=== PATIENT | female | born 1975 | race African-American/Black ===

== ENCOUNTER 2017-09-17 15:33 | Inpatient (IN) | payer MEDICAID ==
--- NOTE | 2017-09-17 16:04 | ED Physician Chart ---
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 Allergies:: Allergies Allergy/AdvReac Type Severity Reaction Status Date / Time No Known Allergies Allergy Verified 04/28/17 23:50 Vitals:: Vital Signs - 8 hr 09/17/17 15:40 Temp 98.0 F HR 113 RR 16 BP 147/89 O2 Sat % 100 Historian:: Patient, EMS Review:: Nurse's Note Reviewed, EMS run form Reviewed ED Review of Systems - Review of Systems General/Constitutional: No fever, No chills, No weight loss, No weakness, No diaphoresis, No edema, No loss of appetite Skin: No skin lesions, No rash, No bruising Head: No headache, No light-headedness Eyes: No loss of vision, No pain, No diplopia ENT: No earache, No nasal drainage, No sore throat, No tinnitus Neck: No neck pain, No swelling, No thyromegaly, No stiffness, No mass noted Cardio Vascular: No chest pain, No palpitations, No PND, No orthopnea, No edema Pulmonary: No SOB, No cough, No sputum, No wheezing GI: No nausea, No vomiting, No diarrhea, No pain, No melena, No hematochezia, No constipation, No hematemesis G/U: No dysuria, No frequency, No hematuria Musculoskeletal: No bone or joint pain, No back pain, No muscle pain Endocrine: No polyuria, No polydipsia Psychiatric: No prior psych history, No depression, Anxiety, No suicidal ideation Hematopoietic: No bruising, No lymphadenopathy Allergic/Immuno: No urticaria, No angioedema Neurological: No syncope, No focal symptoms, No weakness, No paresthesia, No headache, Seizure, No dizziness, No confusion, No vertigo ED Past Medical History - Past Medical History Obtainable: Yes Past Medical History: HTN, Seizures Family History: HTN Social History: Non Smoker, No Alcohol, No Drug Use, Surgical History: None Psychiatricy History: None Medication: Reviewed Family Medical History - Family Member Mother History Unknown: Yes Ethnicity: Non- Living Status: Hx Family Cancer: No Hx Family Coronary Artery Disease: Yes Hx Family Congestive Heart Failure: No Hx Family Hypertension: No Hx Family Stroke: No Hx Family Diabetes: No Hx Family Seizures: No Hx Family Dementia: No Hx Family AIDS: No Hx Family HIV: No Hx Family COPD: No Hx Family Hepatitis: No Hx Family Psychiatric Problems: No Hx Family Tuberculosis: No Father History Unknown: Yes Ethnicity: Non- Living Status: Still Living Hx Family Cancer: No Hx Family Coronary Artery Disease: Yes Hx Family Congestive Heart Failure: No Hx Family Hypertension: Yes Hx Family Stroke: No Hx Family Diabetes: Yes Hx Family Seizures: No Hx Family COPD: No Hx Family Hepatitis: No Hx Family Psychiatric Problems: No Hx Family Tuberculosis: No ED Physical Exam - Physical Examination General/Constitutional: Awake, Well-developed, well-nourished, Alert, No distress, GCS 15, Non-toxic appearing, Ambulatory Other Head comments:: + Occipital Scalp Contusion Eyes: Lids, conjuctiva normal, PERRL, EOMI Skin: Nl inspection, No rash, No skin lesions, No ecchymosis, Well hydrated, No lymphadenopathy ENMT: External ears, nose nl, TM canals nl, Nasal exam nl, Lips, teeth, gums nl , Oropharynx nl, Tonsils nl Neck: Nontender, Full ROM w/o pain, No JVD, No nuchal rigidity, No bruit, No mass, No stridor Respiratory: Nl effort/Exclusion, Clear to Auscultation, No Wheeze/Rhonchi/Rales Cardio Vascular: RRR, No murmur, gallop, rubs, NL S1 S2 GI: No tenderness/rebounding/guarding, No organomegaly, No hernia, Normal BS's, Nondistended, No mass/bruits, No McBurney tenderness : No CVA tenderness Extremities: No tenderness or effusion, Full ROM, normal strength in all extremities, No edema, Normal digits & nails Neuro/Psych: Alert/oriented, DTR's symmetric, Normal sensory exam, Normal motor strength, Judgement/insight normal, Mood normal, Normal gait, No focal deficits Misc: Normal back, No paraspinal tenderness ED Labs/Radiology/EKG Results - Lab Results Comments:: Na+: 133; Dilantin and Tegretol Levels are sub-therapeutic - Radiology Results Comments:: NAD - EKG Interpretations EKG Time:: 16:10 Rate & Rhythm: 100; ST Comments:: non-specific st-t changes ED Septic Shock - . Is Septic Shock (SBP<90, OR Lactate>4 mmol\L) present?: No - <6hrs of presentation: Vital Signs: Vital Signs - 8 hr 09/17/17 15:40 Temp 98.0 F HR 113 RR 16 BP 147/89 O2 Sat % 100 ED Reassessment (Disposition) - Reassessment Reassessment Condition:: Improved - Diagnosis Diagnosis:: Hyponatremia; Epilepsy; Seizures; Drug Non-Compliance; Syncope; Tachycardia - Aftercare/Follow up Instructions Aftercare/Follow-Up Instructions:: Counseled pt regarding lab results/diagnosis & need follow up, Counseled pt & family regarding lab results/diagnosis & need follow up - Patient Disposition Discharge/Transfer:: Acute Care w/in this hosp Accepting Physician:: Dr. Pisano Time Called:: 1829 Time Responded:: 18:30 Admitted to:: Telemetry Spoke to:: Dr. Pisano Admitting Medical Physician:: Dr. Pisano Condition at Disposition:: Stable, Improved
[2017-09-17 16:20] LABS: % BASOPHILS 0.6 % (0.0-2.0); % EOSINOPHILS 2.3 % (0.0-5.0); % LYMPHOCYTES 38.9 % (20.0-50.0); % MONOCYTES 7.5 % (2.0-10.0); % NEUTROPHILS 50.7 % (40.0-80.0); HEMATOCRIT 41.1 % (41.0-60); HEMOGLOBIN 13.2 gm/dL (12-16); MEAN CORPUSCULAR HGB CONC 32.1 pg (28.0-36.0); MEAN PLATELET VOLUME 8.4 fl; NEUTROPHILE ABSOLUTE 4.1 Th/cmm (1.8-8.0); PLATELET COUNT 312 Th/cmm (150-400); RED BLOOD COUNT 4.73 Mil/cmm (3.80-5.10)
[2017-09-17 16:43] LABS: ALB/GLOB RATIO 1.3 (1.0-1.8); ALKALINE PHOSPHATASE 49 U/L (34-104); ANION GAP 9.9 (7.0-16.0); BILIRUBIN,TOTAL 0.4 mg/dL (0.3-1.0); BUN - UREA NITROGEN 13 mg/dL (7-25); BUN/CREATININE RATIO 14.4; CALCIUM SERUM 9.8 mg/dL (8.6-10.3); CARBON DIOXIDE 24.8 mEq/L (21.0-31.0); CHLORIDE 102 mEq/L (98-107); CHOLESTEROL 212 mg/dL (<200); CREATININE - SERUM 0.9 mg/dL (0.6-1.2); GLUCOSE 112 mg/dL (70-105); POTASSIUM SERUM 3.7 mEq/L (3.5-5.1); SGOT 10 U/L (13-39); SGPT/ALT 12 U/L (7-52); SODIUM SERUM 133 mEq/L (136-145); TRIGLYCERIDES 104 mg/dL (<150)
[2017-09-17 16:45] LABS: PROTHROMBIN TIME (TEST) 10.4 SECONDS (9.5-11.5)
[2017-09-17] MEDS ORDERED: HYDROmorphone 1 mg/mL 1mL Syr IVP STA ×2 (19:14→19:16)
[2017-09-17] MEDS ORDERED: Sodium Chloride 0.9% 1,000 ML IV SCH (19:15)
[2017-09-17] MEDS ORDERED: HYDROmorphone 1 mg/mL 1mL Syr ONE (19:18)
[2017-09-17] MEDS ORDERED: HYDROmorphone 1 mg/mL 1mL Syr IVP PRN (20:18)
[2017-09-17 21:00] LABS: URINE BILIRUBIN NEGATIVE (NEGATIVE); URINE BLOOD NEGATIVE (NEGATIVE); URINE GLUCOSE (UA) NEGATIVE (NEGATIVE); URINE KETONE NEGATIVE (NEGATIVE); URINE PH 6.5 (4.6 - 8.0); URINE PROTEIN TRACE mg/dL (NEGATIVE); URINE UROBILINOGEN 0.2 E.U./dL (0.2 - 1.0)
[2017-09-17 21:03] LABS: URINE COLOR YELLOW
[2017-09-17 21:04] LABS: URINE AMORPHOUS SEDIMENT MANY URATES (NONE SEEN); URINE BACTERIA 1+ /hpf (NONE SEEN); URINE CALCIUM OXALATE CRYSTALS FEW /hpf; URINE EPITHELIAL CELLS FEW /lpf (FEW); URINE RBC NONE SEEN /hpf (0-5)
[2017-09-17] MEDS ORDERED: NIFEdipine 30 mg ER Tab PO SCH (23:45)
[2017-09-18 03:11] VITALS: BP 158/101
--- NOTE | 2017-09-18 07:49 | Diagnostic Imaging Report ---
CHEST X-RAY: AP view INDICATION: Syncope COMPARISON: 04/29/2017 FINDINGS: There is no focal consolidation or pleural effusions The heart is normal in size. Degenerative changes of the spine are noted with mild scoliosis. IMPRESSION: No focal airspace consolidation identified.
--- NOTE | 2017-09-18 07:59 | Diagnostic Imaging Report ---
Head CT without intravenous contrast Indication: Seizure, syncope Comparison: 10/20/2016 Technique: Axial images were obtained from the vertex to the skull base without IV contrast. Coronal reconstructions were made. Total DLP: 652, CTD I 38 FINDINGS: Images of the brain obtained without contrast demonstrate no acute hemorrhage. No mass lesions identified. The ventricles and basal cisterns are patent. The ornelas-white matter differentiation is preserved. There is no mass effect or midline shift. Mildly prominent cisterna magna is noted. No skull fractures identified. No soft tissue swelling. The paranasal sinuses are clear. IMPRESSION: No acute intracranial abnormality.
[2017-09-18] MEDS ORDERED: Influenza Vaccine 0.5 mL Syr IM ONE (10:00)
--- NOTE | 2017-09-18 15:43 | History & Physical ---
ADMIT DATE: 09/18/2017 INITIAL COMPLAINTS: 1. Fainting episode. 2. Probable seizure activity. 3. Altered level of consciousness. 4. Possible contusion, scalp. 5. Tachycardia, rule out anterior infarct. 6. Probable fall when fainting. RECENT MEDICAL HISTORY: This is a 42-year-old female that has an extensive history of probable seizure activity, also that of psychiatric history with depression. This patient presented to [facility] on 09/17/2017 in the early evening approximately 6:00 p.m. The Emergency Department physician had her CAT scan, that Emergency Department physician is Dr. Brandon Kang had her CAT scan and also determined that her antiepileptic medication levels were subtherapeutic that would be Tegretol with a level of less than 2.0 definitively less subtherapeutic and Dilantin less than 3.5, definitively less than subtherapeutic. This patient apparently had been brought in by ambulance from her home post-fall, post-fainting episode, rule out corina seizure activity. The patient also presented with a contusion, bruise, abrasion on the occiput of her scalp with a mildly decreased level of consciousness. The CT scan of this patient was performed of the patient's brain and the only positive finding was prominent cisterna magnum, no bleeds, no trauma, no skull fractures. The Dilantin is already mentioned was subtherapeutic, the Tegretol was subtherapeutic. The EKG in this patient on initial presentation demonstrated sinus tachycardia at 113 heart rate, respiratory rate 16, 147/89 blood pressure, 100 O2 sat on room air, 98.0 degrees Fahrenheit body temperature, and also the EKG demonstrated left axis deviation, rule out anterior infarct. The patient was determined by Dr. Kang to be slightly dry regarding fluids and was given IV normal saline and was started on a p.o. order of Dilantin. Dr. Kang, the Emergency Department physician called myself, Dr. Pisano, the primary for this patient, and we discussed the case and Dr. Kang felt very strongly that this patient should be admitted for 24-hour observation I agreed and the nurses proceeded to take orders from me, which included on my part IV bolus of Dilantin, admit to medical surgery for observation, chest x-ray, BNP, D-dimer, Tegretol, carbamazepine p.o. b.i.d. FAMILY HISTORY: This patient has a family, and child son, all living together. SOCIAL HISTORY: Nonsmoker. Not drinker of alcohol. ALLERGIES: No known drug allergies. REVIEW OF SYSTEMS: HEENT: Positive for a scalp occiput abrasion, contusion. Chest: Not significant for today's admission. LUNGS: Not significant for today's admission. CARDIAC: Significant for today's admission and that the patient has sinus tachycardia, rule out anterior infarct and a left axis deviation. PHYSICAL EXAMINATION: GENERAL: I was called in the evening regarding this patient and I was called multiple times and finally at 4:00 a.m. I was called indicating that the patient was leaving the premises without medical advice, leaving on her own against medical advice, so I was not able to perform personally a physical exam, so I will hamilton from the examination that was done in the Emergency Department regarding this patient's presentation. HEENT: Again the mentioned occiput scalp abrasion present. Extraocular motion intact. Fundi intact bilaterally. Nasal intact. Tympanic membranes intact bilaterally. Again, the scalp abrasion on the occiput. CHEST: According to the Emergency Department examination was normal inspiratory and expiratory excursions. LUNGS: Clear to auscultation. CARDIAC: Sinus tachycardia. No gross murmurs. Again, with the EKG demonstrating rule out anterior infarct and left axis deviation. ABDOMEN: Obese belly, positive bowel sounds, nontender to palpation again according to the Emergency Department examination. EXTREMITIES: Full range of motion, although the patient would have been supine when tested. Motor strength apparently 5/5. Cerebellum apparently intact. PSYCHIATRIC: The patient has an underlying depression. She is being treated for that mood would be altered, demonstrating a baseline of depression. NEUROLOGIC: Cerebellum intact, although the patient was supine and motor would have been 5/5 in the extremities on all 4 extremities. IMPRESSIONS: 1. Syncope episode. 2. Initially presenting with altered level of consciousness. 3. Possible/probable seizure episode. 4. Probable fall. 5. Apparent scalp contusion. 6. Sinus tachycardia with left axis deviation, rule out anterior infarct. PLAN: Admit to medical surgery, minimally 24 hours for observation. Continue normal saline. Administer bolus 300 mg Dilantin IV. Start Tegretol 200 p.o. b.i.d. that would be q.12 hours. Continue regular medications by mouth, lisinopril 40 mg p.o. every day, amlodipine 5 mg p.o. every day, Xanax 2 mg p.o. q.i.d. p.r.n. anxiety, Ambien 10 mg p.o. at bedtime, hydrochlorothiazide 12.5 mg every day, loratadine 10 mg p.o. at bedtime, Fioricet without codeine 1 tablet 4 times a day p.r.n., tension headache, Dilantin to be continued at the rate of 100 p.o. t.i.d., Seroquel 300 p.o. t.i.d., Neurontin 300 p.o. t.i.d. and Dilaudid 1 mg q.4h. IV slow push p.r.n. pain, also we are to call in consultants, Dr. Alvarado for neurological examination regarding seizure activity and fall and also Dr. Lidia Flores regarding abnormal EKG with sinus tachycardia, left axis deviation, and rule out anterior infarct. This patient left against medical advice at 4:00 a.m. only hours after being admitted that would be approximately 8-9 hours after admission against medical advice she left going home. The patient will be instructed to follow up with Dr. Pisano in his office as soon as possible. JOB# [id number]
[2017-09-18] MEDS ORDERED: NIFEdipine 30 mg ER Tab PO SCH (23:04)
== END 2017-09-18 04:45 | disposition left against medical advice (07) | DRG 53 ==
LOC: ER 15:33 → MSI 18:30
PROVIDERS: ADMIT General Practice; ATTEND General Practice
DX: G40.909 Epilepsy, unspecified, not intractable, without status epilepticus (principal); E87.1 Hypo-osmolality and hyponatremia; R55 Syncope and collapse; R00.0 Tachycardia, unspecified; R40.4 Transient alteration of awareness; S00.03XA Contusion of scalp, initial encounter; Z53.21 Procedure and treatment not carried out due to patient leaving prior to being seen by health care provider; F32.9 Major depressive disorder, single episode, unspecified; W18.30XA Fall on same level, unspecified, initial encounter; Y93.89 Activity, other specified; Y92.009 Unspecified place in unspecified non-institutional (private) residence as the place of occurrence of the external cause; Y99.8 Other external cause status; Z82.49 Family history of ischemic heart disease and other diseases of the circulatory system; Z83.3 Family history of diabetes mellitus; Z91.14 Patient's other noncompliance with medication regimen
CPT/HCPCS: 36415-UA; 70450-TC; 71010-TC; 80053-TC; 80061-TC; 80156-TC; 80185-TC; 81001-TC; 82550-TC; 83880-TC; 84484-TC; 84703-TC; 85025-TC; 85610-TC; 93005; 94760; 96374; 96375; J1170; J7030; Z7610

== ENCOUNTER 2017-11-29 08:41 | Inpatient (IN) | payer MEDICAID ==
--- NOTE | 2017-11-29 09:50 | ED Physician Chart ---
ED Chief Complaint/HPI - Patient Information Date Seen:: 11/29/17 Time Seen:: 09:35 Chief Complaint:: chest pain History of Present Illness:: Patient's had constant substernal chest pain for the last 2-1/2 week. She's had substernal chest pressure for last 1 week. Patient's had chills and fever for last 3 weeks. Patient's been short of breath for last 1 week. Patient has an occasional cough. Allergies:: Allergies Allergy/AdvReac Type Severity Reaction Status Date / Time No Known Allergies Allergy Verified 11/29/17 09:27 Vitals:: Vital Signs - 8 hr 11/29/17 09:18 Temp 97.9 F HR 118 RR 16 BP 136/96 O2 Sat % 99 Historian:: Patient Review:: Nurse's Note Reviewed ED Review of Systems - Review of Systems General/Constitutional: Fever, Chills Skin: No skin lesions Head: No headache Eyes: No loss of vision ENT: No earache Neck: No neck pain Cardio Vascular: Chest pain Pulmonary: SOB GI: No nausea, No vomiting, No diarrhea G/U: No dysuria, No frequency Track Greaser: No abnormal vaginal bleed Musculoskeletal: No bone or joint pain Endocrine: No polyuria Psychiatric: Anxiety Hematopoietic: No bruising Allergic/Immuno: No urticaria Neurological: No syncope, No focal symptoms ED Past Medical History - Past Medical History Past Medical History: HTN, Seizures, Other (grand mal seizures; sleep apnea; exercise-induced asthma when younger) Family History: HTN, Other (sleep apnea) Social History: Smoker, No Alcohol, Other (patient vapes about once a month) Surgical History: None Psychiatricy History: Other (anxiety) Medication: Reviewed Family Medical History - Family Member Mother History Unknown: Yes Ethnicity: Non- Living Status: Hx Family Cancer: No Hx Family Coronary Artery Disease: Yes Hx Family Congestive Heart Failure: No Hx Family Hypertension: Yes Hx Family Stroke: No Hx Family Diabetes: No Hx Family Seizures: No Hx Family Dementia: No Hx Family AIDS: No Hx Family HIV: No Hx Family COPD: No Hx Family Hepatitis: No Hx Family Psychiatric Problems: No Hx Family Tuberculosis: No Father History Unknown: Yes Ethnicity: Non- Living Status: Still Living Hx Family Cancer: No Hx Family Coronary Artery Disease: Yes Hx Family Congestive Heart Failure: No Hx Family Hypertension: Yes Hx Family Stroke: No Hx Family Diabetes: Yes Hx Family Seizures: No Hx Family COPD: No Hx Family Hepatitis: No Hx Family Psychiatric Problems: No Hx Family Tuberculosis: No ED Physical Exam - Physical Examination General/Constitutional: Well-developed, well-nourished, Alert, No distress Head: Atraumatic Eyes: Lids, conjuctiva normal Skin: Nl inspection, No rash, No skin lesions, No ecchymosis ENMT: External ears, nose nl, TM canals nl, Lips, teeth, gums nl, Oropharynx nl , Tonsils nl Neck: No nuchal rigidity Respiratory: Nl effort/Exclusion, Clear to Auscultation Cardio Vascular: RRR, No murmur, gallop, rubs, NL S1 S2 GI: No tenderness/rebounding/guarding, No organomegaly : No CVA tenderness Extremities: No edema Neuro/Psych: No focal deficits Misc: No paraspinal tenderness ED Labs/Radiology/EKG Results - EKG Interpretations Rate & Rhythm: normal sinus rhythm with a rate of 80 [place]: normal Comments:: Normal EKG ED Assessment - Assessment General Assessment: Patient felt slightly better after the breathing treatment. Patient's chest pain is most likely secondary to reactive airway disease and not of cardiac etiology. ED Septic Shock - . Is Septic Shock (SBP<90, OR Lactate>4 mmol\L) present?: No - <6hrs of presentation: Vital Signs: Vital Signs - 8 hr 11/29/17 09:18 Temp 97.9 F HR 118 RR 16 BP 136/96 O2 Sat % 99 ED Reassessment (Disposition) - Reassessment Reassessment Condition:: Improved - Diagnosis Diagnosis:: Reactive airway disease - Aftercare/Follow up Instructions Aftercare/Follow-Up Instructions:: Refer to Discharge Instructions Medication Prescribed:: Albuterol metered-dose inhaler to use 2 puffs every 4 hours as necessary for shortness of breath and/or chest pain - Patient Disposition Discharge/Transfer:: Home Condition at Disposition:: Stable, Improved
[2017-11-29 10:03] LABS: % BASOPHILS 0.1 % (0.0-2.0); % EOSINOPHILS 1.4 % (0.0-5.0); % MONOCYTES 3.5 % (2.0-10.0); EOSINOPHILE ABSOLUTE 0.1 Th/cmm (0.1-0.4); HEMOGLOBIN 13.4 gm/dL (12-16); LYMPHOCYTE ABSOLUTE 2.9 Th/cmm (1.5-3.0); MEAN CELL VOLUME 86.7 fl (81-100); MEAN CORPUSCULAR HEMOGLOBIN 27.7 pg (27.0-31.0); MEAN PLATELET VOLUME 8.2 fl; MONOCYTE ABSOLUTE 0.3 Th/cmm (0.3-1.0); NEUTROPHILE ABSOLUTE 4.6 Th/cmm (1.8-8.0); PLATELET COUNT 297 Th/cmm (150-400); RED BLOOD COUNT 4.84 Mil/cmm (3.80-5.10); RED CELL DISTRIBUTION WIDTH 14.9 % (11.5-20.0); WHITE BLOOD COUNT 7.9 Th/cmm (4.8-10.8)
[2017-11-29] MEDS ORDERED: Albuterol/Ipratropium Neb 3 ML AERS HHN ONE ×2 (10:24→10:34)
[2017-11-29 10:27] LABS: ANION GAP 12.1 (7.0-16.0); BUN - UREA NITROGEN 17 mg/dL (7-25); CALCIUM SERUM 9.3 mg/dL (8.6-10.3); CARBON DIOXIDE 21.1 mEq/L (21.0-31.0); CHLORIDE 107 mEq/L (98-107); CREATININE - SERUM 0.9 mg/dL (0.6-1.2); GFR AFRICAN-AMERICAN > 60.0 ml/min (>90); GFR NON AFRICAN-AMERICAN > 60.0 ml/min; GLUCOSE 116 mg/dL (70-105); POTASSIUM SERUM 3.2 mEq/L (3.5-5.1); SODIUM SERUM 137 mEq/L (136-145)
--- NOTE | 2017-11-29 10:55 | Diagnostic Imaging Report ---
CHEST X-RAY: AP view INDICATION: pain COMPARISON: 09/17/2017 FINDINGS: There is no focal consolidation or pleural effusions The heart is normal in size. Degenerative changes of the spine are noted with scoliosis. IMPRESSION: No focal airspace consolidation identified.
[2017-11-29] MEDS ORDERED: Potassium Chloride 20 mEq ER Tab PO ONE (11:02)
[2017-11-29] MEDS ORDERED: HYDROmorphone 2 mg/mL 1mL Vial IVP PRN (13:05)
[2017-11-29 13:09] VITALS: BP 147/95
[2017-11-29] MEDS: NIFEdipine 30 mg ER Tab PO SCH (17:01)
[2017-11-29] MEDS ORDERED: cefTRIAXone 1 GM in Sodium Chloride 0.9% 50 ML IV SCH (18:30)
[2017-11-29] MEDS ORDERED: Sodium Chloride 0.9% 1,000 ML IV SCH (18:30)
[2017-11-29] MEDS: Albuterol/Ipratropium Neb 3 ML AERS HHN SCH (19:50)
[2017-11-29] MEDS ORDERED: Maalox 30 mL Cup PO PRN (22:14)
[2017-11-29] MEDS: HYDROmorphone 2 mg/mL 1mL Vial IVP PRN (22:59)
--- NOTE | 2017-11-29 23:02 | History & Physical ---
ADMIT DATE: 11/29/2017 CHIEF COMPLAINT: 1. Midsternal chest pain, several days duration. 2. Abnormal EKG on presentation to the Emergency Department at [facility]. 3. Gross fatigue experienced over 2 weeks. 4. Nausea. 5. Anorexia. HISTORY OF PRESENT ILLNESS: The patient presented to [facility] on November 29, late morning with midsternal chest pain experienced over the last few days, unrelenting gross fatigue and nausea, not feeling her usual self, chills ____ over the last several days. 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 Chest x-ray demonstrated no infiltrates. Secondary, Dr. Brooks, the Emergency Department Physician communicated with the PCP, Dr. Matias Pisano regarding the Emergency Department presentation of this patient and both agreed that the patient need to be observed and serial troponins need to be taken to rule out any evolving myocardial pathology. The patient was admitted with Dr. Pisano over the telephone, prescribing telemetry for the patient. IV line was established flowing at 50 mL per hour. Second EKG was ordered by Dr. Pisano. FAMILY HISTORY: The patient has longtime spouse and children at home. SOCIAL HISTORY: The patient is not known to imbibe any significant quantities of alcohol. The patient is not known to be a cigarette smoker. ALLERGIES: No known drug allergies. REVIEW OF SYSTEMS: HEENT: Within normal limits. CHEST: Significant for today's admission with the midsternal chest pain unrelenting over several days. LUNGS: Significant for today's admission and that the patient is complaining of not being able to breathe properly and sporadic cough. CARDIAC: Significant for today's admission and that the patient has a history of hypertension and recent, as already mentioned, midsternal chest pain. ABDOMEN: Not significant for today's admission. EXTREMITIES: Not significant for today's admission. NEUROLOGICAL: Not significant for today's admission. PSYCHIATRIC: Not significant for today's admission. PHYSICAL EXAMINATION: HEENT: Normal cephalous. No apparent trauma to the head. Extraocular motion intact. Pupils equally reactive to light and accommodation bilaterally. Tympanic membranes are intact bilaterally. Oropharynx intact. CHEST: Midsternal chest pain present on palpation. LUNGS: Clear to auscultation. CARDIAC: Borderline tachycardia. No gross murmurs. ABDOMEN: Obese belly. Positive bowel sounds in all 4 quadrants. Nondistended. EXTREMITIES: Full range of motion. Motor 5/5. NEUROLOGICAL: Cerebellum intact, history of seizure disorder. PSYCHIATRIC: Mood normal. Alert and oriented x4. GENITALIA: Refused. IMPRESSION: 1. Chest pain. 2. Abnormal EKGs. We will subdivide that into first with old inferior infarct and second EKG demonstrating left anterior fascicular block and positive tachycardia. Both abnormal EKGs. 3. Elevated D-dimer, rule out pulmonary embolism. Rule out DVT, lower extremities. 4. Chills and fatigue, rule out viral respiratory illness. 5. History of seizures. 6. Difficulty breathing. 7. Anxiety. 8. Hypokalemia. 9. Insomnia. 10. Hypertension and heart disease. 11. Headache, tension/migraine. 12. Depressive disorder. PLAN: 1. Admit to medical surgery with telemetry. 2. Cardiology consult with Dr. Lidia Flores. 3. O2 nasal cannula 2 liters per minute. 4. Serial troponin I q.6h. 5. BNP in 12 hours. 6. D-dimer. 7. Repeat EKG. 8. Meds called in by Dr. Pisano. Seroquel 300 mg p.o. q.8h., Dilantin 100 mg p.o. q.8h., Procardia-XL 30 mg p.o. q.24h., lisinopril 40 mg p.o. q.24h., Dilaudid 2 mg IV slow push q.8h., Neurontin 300 mg p.o. q.8h., and Xanax 2 mg IV slow push q.6h. p.r.n. anxiety. 9. Tegretol 200 mg p.o. q.12h. 10. Ambien 10 p.o. at bedtime p.r.n. insomnia. 11. Albuterol and ipratropium breathing treatments q.6h. 12. Klor-Con 40 mEq p.o. x1. 13. Rocephin 1000 mg IV piggyback q.24h. 14. Ultrasound Doppler of lower extremities, right and left. 15. V/Q scan, pulmonary perfusion testing. 16. Flu screen. 17. Low salt diet. 18. EKG followup. 19. Potassium level. JOB# [id number]
[2017-11-30] MEDS: Albuterol/Ipratropium Neb 3 ML AERS HHN SCH ×3 (00:03→13:42)
--- NOTE | 2017-11-30 07:43 | Diagnostic Imaging Report ---
Bilateral lower extremity DVT study HISTORY: Elevated d-dimer, rule out DVT COMPARISON: None Technique: Longitudinal and transverse sonographic images of the bilateral lower extremity veins were obtained with doppler analysis. FINDINGS: There is normal compressibility, augmentation and phasicity of the bilateral common femoral, superficial femoral, popliteal, and posterior tibial veins. No thrombus is visualized. IMPRESSION: No evidence of thrombus within the bilateral lower extremity veins.
--- NOTE | 2017-11-30 08:26 | Diagnostic Imaging Report ---
Radionuclide perfusion/ventilation lung scan HISTORY: Elevated d-dimer, shortness of breath 5.2 mCi technetium macroaggregated albumin was used in the perfusion portion of the exam. 32.0 mCi technetium DTPA aerosol was using the ventilation portion of the study. The exam demonstrates uniform activity throughout the lungs in both ventilation and perfusion images. No focal abnormalities. No segmental defects. Specifically, no perfusion/ventilation mismatches. IMPRESSION: 1. Negative examination. No scintigraphic evidence of pulmonary embolism.
[2017-11-30] MEDS: NIFEdipine 30 mg ER Tab PO SCH (08:39)
[2017-11-30] MEDS: HYDROmorphone 2 mg/mL 1mL Vial IVP PRN ×2 (08:55→15:29)
[2017-11-30] MEDS ORDERED: Pneumococcal Vaccine 0.5 mL Vial IM ONE (09:00)
[2017-11-30 10:29] LABS: INF A SCREEN NEG FOR INF A; INF B SCREEN NEG FOR INF B
[2017-11-30 11:36] LABS: BUN - UREA NITROGEN 19 mg/dL (7-25); CALCIUM SERUM 9.2 mg/dL (8.6-10.3); CARBON DIOXIDE 21.7 mEq/L (21.0-31.0); CHLORIDE 108 mEq/L (98-107); GFR AFRICAN-AMERICAN > 60.0 ml/min (>90); GFR NON AFRICAN-AMERICAN > 60.0 ml/min; GLUCOSE 140 mg/dL (70-105); POTASSIUM SERUM 3.7 mEq/L (3.5-5.1); SODIUM SERUM 137 mEq/L (136-145)
[2017-11-30] MEDS ORDERED: Influenza Vaccine 0.5 mL Syr IM ONE (14:40)
--- NOTE | 2017-12-01 14:51 | Consultation ---
DATE OF CONSULTATION: 11/29/[address] Matias Pisano. HISTORY OF PRESENT ILLNESS: This is a 42-year-old -[place] obese female patient who had been complaining of chest pain on the right side, second intercostal junction for over 3 months. No history of PND or orthopnea. The patient came to the Emergency Room and the patient is admitted. PAST MEDICAL HISTORY: The patient has a history of hypertension, anxiety, insomnia, and seizure disorder. FAMILY HISTORY: Unremarkable. SOCIAL HISTORY: No history of smoking, alcohol abuse. ALLERGIES: No known allergies. PHYSICAL EXAMINATION: VITAL SIGNS: Blood pressure 130/80, pulse 70, and respirations 20. HEAD: Normocephalic. No lumps or bumps. EYES: Pupils equal, reactive to light. Fundi show AV nicking, sclerae white, conjunctivae pink. NECK: Carotid 2+. Normal upstroke. JVD flat. Thyroid not palpable. Lymph nodes not palpable. CHEST: Shows increased AP diameter. No kyphosis, scoliosis. LUNGS: Bilateral bronchovesicular breath sounds. HEART: PMI fifth intercostal space with lateral to midclavicular line. S1, S2. No S3, S4, soft systolic murmur. ABDOMEN: Soft. Liver, spleen not palpable. No organomegaly. Bowel sounds active. NEUROLOGIC: Unremarkable. EXTREMITIES: Peripheral pulses 2+. No pedal edema. The patient has a costochondral junction pain on the right third intercostal space. LABORATORY DATA AND DIAGNOSTIC DATA: During the hospital stay, troponin levels were normal. EKG unremarkable. The patient's cardiac status appears to be nonnonsignificant. DIAGNOSES: Chest pain, unlikely coronary artery disease; anxiety; depression; migraine headache; hypertension; seizure disorder. The patient was clear. The patient had troponin levels EKG, and monitored the patient on telemetry bed. JOB# [id number]
--- NOTE | 2017-12-08 08:02 | Discharge Summary ---
DATE OF DISCHARGE: 11/30/2017 DISCHARGE DIAGNOSES: 1. Midsternal chest pain, resolving. 2. Costochondritis, resolving. 3. Multiple abnormal EKGs without cardiac injury. 4. Multiple troponin 1 levels, all within normal limits. 5. Gross fatigue, resolving. 6. Nausea, resolved. 7. Anorexia, resolved. 8. Hypertension, under better control. 9. Morbid obesity. 10. Left ventricular hypertrophy/left ventricular strain. 11. Cardiac tachycardia, resolved. 12. Elevated D-dimer, be under treatment. 13. Hypokalemia, resolved. 14. Recent pulmonary infection, resolving. RECENT MEDICAL HISTORY: The patient presented to [facility] late morning 11/29/2017 with midsternal chest pain experienced over the last few days, unrelenting gross fatigue and nausea, not feeling her usual self, chills also over the last several days. 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 Chest x-ray demonstrated no infiltrates. Emergency Department physician spoke to PCP, Dr. Matias Pisano regarding presentation and both agreed that the patient needed to be observed with serial troponin levels taken to rule out any evolving myocardial pathology. The patient was admitted by Dr. Pisano over the telephone prescribing med/surg telemetry for the patient, IV flowing at 50 mL per hour with a second EKG ordered. DIAGNOSTIC DATA: At presentation, blood pressure 147/95, heart rate 111 per minute on presentation. The EKG performed in the ER demonstrated a left anterior fascicular block, premature complexes, sinus tachycardia considered and abnormal EKG. The pain scale was 4/10 with a respiratory rate 20 per minute and the temperature 96.9. Other diagnostic data includes the following: EKG performed at 6:30 p.m. on 11/29/2017, sinus tachycardia, ventricular premature complex, probable left atrial enlargement, left anterior fascicular block, considered an abnormal EKG. On 11/29/2017, V/Q scan, reason because of elevated D-dimer and shortness of breath, negative exam. No evidence of pulmonary embolus. Bilateral lower extremity DVT study performed on 11/29/2017 because of the elevated D-dimer, rule out deep vein thrombosis. Findings: No evidence of thrombus within the bilateral lower extremity veins. EKG performed on 11/30/2017 at 11:00 a.m., sinus rhythm, abnormal R-wave progression, early transition, probable left ventricular hypertrophy, abnormal EKG. Another one diagnostic data was elevated D-dimer 778. Potassium was below normal at 3.2. HOSPITAL COURSE AND TREATMENT: 1. 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 HEENT was normal. Chest was clear. Positive midsternal chest pain. Heart rate was borderline tachycardia. Abdomen was obese belly, nondistended. Extremities had full range of motion. Neurologically intact. Psychiatric alert and oriented x 4, normal affect. She had an elevated D-dimer, rule out pulmonary embolism and also her EKG was same left anterior fascicular block. She was given the following medications shortly after her arrival to the room. Some of these medications she was supposed to be taking Seroquel 300 mg p.o. q. 8 hours, Dilantin 100 mg p.o. q. 8 hours, Procardia XL 30 mg p.o. q. 24 hours, lisinopril 40 mg p.o. q. 24 hours., Dilaudid 2 mg IV slow push q. 6 hours p.r.n. pain, Neurontin 300 mg p.o. q. 8 hours, Xanax 2 mg IV slow push q. 6 hours p.r.n. anxiety, Tegretol 200 mg p.o. q. 12 hours, Ambien 10 mg p.o. at bedtime p.r.n. insomnia, albuterol ipratropium breathing administered by respiratory therapy q. 6 hours, Klor-Con 40 mEq p.o. x 1, and Rocephin 1000 mg IV piggyback q. 24 hours. Ultrasound Doppler lower extremities, right and left, V/Q scan, pulmonary perfusion, flu screen. Low salt diet. Follow up with EKG and potassium level. 2. DAY #2, 11/30/2017: Negative for influenza A and B. Potassium 3.7 normal. Troponin 1 all consistently 0.01, all normal. D-dimer remains elevated. V/Q scan negative. Ultrasound of the lower extremity Dopplers negative right and left. Blood pressure much better at 102/65, temperature 97.4, heart rate 96, no longer tachycardic, respiratory rate 20 per minute on O2 nasal cannula on 2 liters per minute, 100% O2 sat. The patient was alert and oriented, very conversant, conversing well. Good breath sounds throughout. Normal sinus rhythm. Abdomen, obese belly, nondistended. Tender to palpation sternum. Extremities normal. Midsternal chest pain reduced. EKG remains abnormal R-wave progression, early transition. Troponin 1, remains normal and not pathological. Respirations improving. Anxiety under control, tachy meds pending Cardiology consult with Dr. Lidia Flores. The patient can be discharged to home late afternoon of 11/30/2017 if it is okay with Dr. Lidia Flores and he declares that the patient is able to go home. This patient will be going home with a prescription of the following meds. She will be going home with a prescription of: Seroquel 300 mg p.o. t.i.d., #90 and this was all with 5 refills; Dilantin 100 mg p.o. t.i.d., #90; Procardia XL 30 mg p.o. every day #30; lisinopril 40 mg p.o. every day #30; Neurontin 300 mg p.o. t.i.d., #90; and Tegretol 200 mg p.o. b.i.d., #60. The patient was given security script for Ambien 10 mg p.o. at bedtime for 1 month, [place] 7.5/325 mg p.o. t.i.d. for 1 month, and Xanax 2 mg p.o. q.i.d. #120 for one month. The patient is to follow up with Dr. Pisano in his clinic early next week. The patient is stable on discharge directly to home as per Dr. Lidia Flores, Cardiology and Dr. Matias Pisano, PCP. The patient was given scripts both regular meds ____ to take home with her and the patient is stable on discharge. JOB# [id number]
== END 2017-11-30 18:05 | disposition home or self-care (01) | DRG 203 ==
LOC: ER 08:41 → MSI 12:44 → OBSVTOIN 12:44 → TELE 12:47
PROVIDERS: ADMIT General Practice; ATTEND General Practice
DX: M94.0 Chondrocostal junction syndrome [Tietze] (principal); I11.9 Hypertensive heart disease without heart failure; E66.01 Morbid (severe) obesity due to excess calories; G40.409 Other generalized epilepsy and epileptic syndromes, not intractable, without status epilepticus; I25.2 Old myocardial infarction; E87.6 Hypokalemia; R63.0 Anorexia; F17.210 Nicotine dependence, cigarettes, uncomplicated; I44.4 Left anterior fascicular block; R94.31 Abnormal electrocardiogram [ECG] [EKG]; F41.9 Anxiety disorder, unspecified; J45.909 Unspecified asthma, uncomplicated; R00.0 Tachycardia, unspecified; G47.00 Insomnia, unspecified; G43.909 Migraine, unspecified, not intractable, without status migrainosus; F32.9 Major depressive disorder, single episode, unspecified; Z68.41 Body mass index [BMI] 40.0-44.9, adult; Z82.49 Family history of ischemic heart disease and other diseases of the circulatory system; Z83.3 Family history of diabetes mellitus
CPT/HCPCS: 36415-UA; 71045-TC; 80048-TC; 80185-TC; 83735-TC; 83880-TC; 84132-TC; 84484-TC; 84703-TC; 85025-TC; 85379-TC; 87804-TC; 90732; 93005; 93970-TC-50; 94640; 94760; A9540; A9567; J0696; J1170; J7030; Z7610

== ENCOUNTER 2018-03-28 17:03 | Emergency (ER) | payer MEDICAID ==
--- NOTE | 2018-03-28 17:34 | ED Physician Chart ---
ED Chief Complaint/HPI - Patient Information Date Seen:: 03/28/18 Time Seen:: 17:28 Chief Complaint:: Chest pain History of Present Illness:: 42 yo female with history of hypertension, first had chest pain 5 months ago. The chest pain and tachycardia occurred second time 4 months ago and patient was admitted under the care by Dr. Moy. Subsequent cardiac work up was negative. Patient did have elevated D-dimer without evidence of DVT. Currently, patient developed left chest pain a few hours ago. The pain was sharp, 10/10, lasting for 2 hours. The pain would be worsened by taking deep breath. Rest lessen the pain. Had numbness in the left 5th finger. Patient denied heart burn , neck pain, or low back pain. Allergies:: Allergies Allergy/AdvReac Type Severity Reaction Status Date / Time No Known Allergies Allergy Verified 11/29/17 09:27 ED Review of Systems - Review of Systems General/Constitutional: No fever, No chills Skin: No bruising Head: No headache Eyes: No pain ENT: No earache, No sore throat Neck: No neck pain Cardio Vascular: Chest pain, Palpitations, No edema Pulmonary: SOB, No cough GI: No nausea, No vomiting G/U: No dysuria Musculoskeletal: No bone or joint pain, No back pain Neurological: No focal symptoms, No seizure ED Past Medical History - Past Medical History Past Medical History: HTN, Seizures, Other (, sleep apnea) Social History: Non Smoker, No Alcohol, No Drug Use Surgical History: (x 1) Psychiatricy History: Depression Family Medical History - Family Member Mother History Unknown: Yes Ethnicity: Non- Living Status: Hx Family Cancer: No Hx Family Coronary Artery Disease: Yes Hx Family Congestive Heart Failure: No Hx Family Hypertension: Yes Hx Family Stroke: No Hx Family Diabetes: Yes Hx Family Seizures: No Hx Family Dementia: No Hx Family AIDS: No Hx Family HIV: No Hx Family COPD: No Hx Family Hepatitis: No Hx Family Psychiatric Problems: No Hx Family Tuberculosis: No Father History Unknown: Yes Ethnicity: Non- Living Status: Still Living Hx Family Cancer: No Hx Family Coronary Artery Disease: Yes Hx Family Congestive Heart Failure: No Hx Family Hypertension: Yes Hx Family Stroke: No Hx Family Diabetes: Yes Hx Family Seizures: No Hx Family COPD: No Hx Family Hepatitis: No Hx Family Psychiatric Problems: No Hx Family Tuberculosis: No ED Physical Exam - Physical Examination General/Constitutional: Awake Head: Atraumatic Eyes: PERRL Skin: No ecchymosis ENMT: Nasal exam nl Neck: No nuchal rigidity Respiratory: No Wheeze/Rhonchi/Rales Other Respiratory comments:: Left chest wall mild tenderness Cardio Vascular: RRR, No murmur, gallop, rubs, NL S1 S2 GI: No tenderness/rebounding/guarding Extremities: normal strength in all extremities Neuro/Psych: No focal deficits ED Labs/Radiology/EKG Results - Lab Results Results: Laboratory Last Values WBC 6.8 Th/cmm (4.8-10.8) 03/28/18 18:00 RBC 4.42 Mil/cmm (3.80-5.10) 03/28/18 18:00 Hgb 12.4 gm/dL (12-16) 03/28/18 18:00 Hct 38.4 % (41.0-60) L 03/28/18 18:00 MCV 86.9 fl (81-100) 03/28/18 18:00 MCH 28.0 pg (27.0-31.0) 03/28/18 18:00 MCHC Differential 32.2 pg (28.0-36.0) 03/28/18 18:00 RDW 14.6 % (11.5-20.0) 03/28/18 18:00 Plt Count 297 Th/cmm (150-400) 03/28/18 18:00 MPV 8.5 fl 03/28/18 18:00 Neutrophils % 44.0 % (40.0-80.0) 03/28/18 18:00 Lymphocytes % 47.6 % (20.0-50.0) 03/28/18 18:00 Monocytes % 5.7 % (2.0-10.0) 03/28/18 18:00 Eosinophils % 2.0 % (0.0-5.0) 03/28/18 18:00 Basophils % 0.7 % (0.0-2.0) 03/28/18 18:00 D-Dimer 127 ng/mL (100-400) 03/28/18 21:35 Sodium 135 mEq/L (136-145) L 03/28/18 21:35 Potassium 3.7 mEq/L (3.5-5.1) 03/28/18 21:35 Chloride 108 mEq/L (98-107) H 03/28/18 21:35 Carbon Dioxide 17.7 mEq/L (21.0-31.0) L 03/28/18 21:35 Anion Gap 13.0 (7.0-16.0) 03/28/18 21:35 BUN 13 mg/dL (7-25) 03/28/18 21:35 Creatinine 0.9 mg/dL (0.6-1.2) 03/28/18 21:35 Est GFR ( Amer) > 60.0 ml/min (>90) 03/28/18 21:35 Est GFR (Non-Af Amer) > 60.0 ml/min 03/28/18 21:35 BUN/Creatinine Ratio 14.4 03/28/18 21:35 Glucose 94 mg/dL (70-105) 03/28/18 21:35 Calcium 9.3 mg/dL (8.6-10.3) 03/28/18 21:35 Magnesium 2.2 mg/dL (1.9-2.7) 03/28/18 18:00 Total Bilirubin 0.2 mg/dL (0.3-1.0) L 03/28/18 18:00 AST 11 U/L (13-39) L 03/28/18 18:00 ALT 14 U/L (7-52) 03/28/18 18:00 Alkaline Phosphatase 50 U/L (34-104) 03/28/18 18:00 Troponin I < 0.01 ng/mL (0.01-0.05) L 03/28/18 21:35 B-Natriuretic Peptide < 5.0 pg/mL (5.0-100.0) L 03/28/18 18:00 Total Protein 6.8 gm/dL (6.0-8.3) 03/28/18 18:00 Albumin 3.8 gm/dL (3.7-5.3) 03/28/18 18:00 Globulin 3.0 gm/dL 03/28/18 18:00 Albumin/Globulin Ratio 1.3 (1.0-1.8) 03/28/18 18:00 Triglycerides 110 mg/dL (<150) 03/28/18 18:00 Cholesterol 238 mg/dL (<200) H 03/28/18 18:00 LDL Cholesterol Direct 175 mg/dL (75-193) 03/28/18 18:00 HDL Cholesterol 44 mg/dL (23-92) 03/28/18 18:00 TSH 1.44 uIU/ml (0.34-5.60) 03/28/18 18:00 Serum , Qual NEGATIVE (NEGATIVE) 03/28/18 18:00 Urine Source Cancelled 03/28/18 18:00 Urine Color Cancelled 03/28/18 18:00 Urine Clarity Cancelled 03/28/18 18:00 Urine pH Cancelled 03/28/18 18:00 Ur Specific [place] Cancelled 03/28/18 18:00 Urine Protein Cancelled 03/28/18 18:00 Urine Glucose (UA) Cancelled 03/28/18 18:00 Urine Clinitest Cancelled 03/28/18 18:00 Urine Ketones Cancelled 03/28/18 18:00 Urine Blood Cancelled 03/28/18 18:00 Urine Nitrate Cancelled 03/28/18 18:00 Urine Bilirubin Cancelled 03/28/18 18:00 Urine Ictotest Cancelled 03/28/18 18:00 Urine Urobilinogen Cancelled 03/28/18 18:00 Ur Leukocyte Esterase Cancelled 03/28/18 18:00 Ur Micro Indicated Cancelled 03/28/18 18:00 Urine RBC Cancelled 03/28/18 18:00 Urine WBC Cancelled 03/28/18 18:00 Ur Epithelial Cells Cancelled 03/28/18 18:00 Calcium Oxalate Crystal Cancelled 03/28/18 18:00 Uric Acid Crystals Cancelled 03/28/18 18:00 Triple Phos Crystals Cancelled 03/28/18 18:00 Other Crystals Cancelled 03/28/18 18:00 Amorphous Sediment Cancelled 03/28/18 18:00 Urine Bacteria Cancelled 03/28/18 18:00 Hyaline Casts Cancelled 03/28/18 18:00 Fine Granular Casts Cancelled 03/28/18 18:00 Coarse Granular Casts Cancelled 03/28/18 18:00 Waxy Casts Cancelled 03/28/18 18:00 RBC Casts Cancelled 03/28/18 18:00 WBC Casts Cancelled 03/28/18 18:00 Other Casts Cancelled 03/28/18 18:00 Urine Mucus Cancelled 03/28/18 18:00 Urine Other Cancelled 03/28/18 18:00 Urine Trichomonas Cancelled 03/28/18 18:00 Urine Yeast Cancelled 03/28/18 18:00 Urine Sperm Cancelled 03/28/18 18:00 Ur Oval Fat Bodies Cancelled 03/28/18 18:00 Urine Opiates Screen NEGATIVE (NEGATIVE) 03/28/18 18:00 Urine Methadone Screen NEGATIVE (NEGATIVE) 03/28/18 18:00 Ur Barbiturates Screen POSITIVE (NEGATIVE) H 03/28/18 18:00 Ur Tricyclics Screen POSITIVE (NEGATIVE) H 03/28/18 18:00 Ur Phencyclidine Scrn NEGATIVE (NEGATIVE) 03/28/18 18:00 Amphetamines Screen NEGATIVE (NEGATIVE) 03/28/18 18:00 U Methamphetamines Scrn NEGATIVE (NEGATIVE) 03/28/18 18:00 U Benzodiazepines Scrn POSITIVE (NEGATIVE) H 03/28/18 18:00 U Cocaine Metab Screen NEGATIVE (NEGATIVE) 03/28/18 18:00 U Cannabinoids Screen NEGATIVE (NEGATIVE) 03/28/18 18:00 - Radiology Results Results: CXR: no consolidation ED Assessment - Assessment General Assessment: Atypical chest pain to rule out ACS, GERD, costochondritis or anxiety Hyponatremia Assessment/Comments:: CBC, CMP, Troponin, D-dimer CXR, EKG Aspirin NS 1L IV bolus Spoke with Dr. Moy who instructed to repeat Troponin and D-dimer in 2 hours Pantoprazole 40mg IV Ativan 1mg PO ED Septic Shock - . Is Septic Shock (SBP<90, OR Lactate>4 mmol\L) present?: No ED Reassessment (Disposition) - Reassessment Reassessment:: Repeat Trop I and D-dimer were both negative. Patient reported that overall the chest pain was relieved but was still present after treatments at ER. Reassessment Condition:: Improved - Patient Disposition Discharge/Transfer:: Home ED Discharge Plan - Patient Disposition Admit/Discharge/Transfer: PT DISCHARGED HOME Condition at Disposition: Improved Instructions: Anxiety and Panic Attacks, [id number], Chest Pain Observation Additional Instructions: FOLLOW UP WITH DR. MOY ON SUNDAY AT 5:30.
[2018-03-28 18:14] LABS: % BASOPHILS 0.7 % (0.0-2.0); % LYMPHOCYTES 47.6 % (20.0-50.0); % MONOCYTES 5.7 % (2.0-10.0); EOSINOPHILE ABSOLUTE 0.1 Th/cmm (0.1-0.4); HEMATOCRIT 38.4 % (41.0-60); HEMOGLOBIN 12.4 gm/dL (12-16); LYMPHOCYTE ABSOLUTE 3.3 Th/cmm (1.5-3.0); MEAN CELL VOLUME 86.9 fl (81-100); MEAN CORPUSCULAR HGB CONC 32.2 pg (28.0-36.0); MEAN PLATELET VOLUME 8.5 fl; MONOCYTE ABSOLUTE 0.4 Th/cmm (0.3-1.0); PLATELET COUNT 297 Th/cmm (150-400); RED BLOOD COUNT 4.42 Mil/cmm (3.80-5.10); RED CELL DISTRIBUTION WIDTH 14.6 % (11.5-20.0); WHITE BLOOD COUNT 6.8 Th/cmm (4.8-10.8)
[2018-03-28 18:29] LABS: ALB/GLOB RATIO 1.3 (1.0-1.8); ALBUMIN 3.8 gm/dL (3.7-5.3); ALKALINE PHOSPHATASE 50 U/L (34-104); AMPHETAMINE URINE NEGATIVE (NEGATIVE); ANION GAP 12.9 (7.0-16.0); BARBITURATES URINE POSITIVE (NEGATIVE); BENZODIAZEPINES QUAL URINE POSITIVE (NEGATIVE); BILIRUBIN,TOTAL 0.2 mg/dL (0.3-1.0); BUN - UREA NITROGEN 13 mg/dL (7-25); CALCIUM SERUM 9.4 mg/dL (8.6-10.3); CANNABINOID THC NEGATIVE (NEGATIVE); CHLORIDE 106 mEq/L (98-107); COCAINE METABOLITE QUAL URINE NEGATIVE (NEGATIVE); CREATININE - SERUM 1.1 mg/dL (0.6-1.2); GFR AFRICAN-AMERICAN > 60.0 ml/min (>90); GFR NON AFRICAN-AMERICAN 58.2 ml/min; GLUCOSE 95 mg/dL (70-105); METHADONE URINE NEGATIVE (NEGATIVE); METHAMPHETAMINES QUAL URINE NEGATIVE (NEGATIVE); OPIATES (MORPHINE) QUAL. URINE NEGATIVE (NEGATIVE); PHENCYCLIDINE (PCP) URINE NEGATIVE (NEGATIVE); POTASSIUM SERUM 3.9 mEq/L (3.5-5.1); SGOT 11 U/L (13-39); SGPT/ALT 14 U/L (7-52); SODIUM SERUM 134 mEq/L (136-145); TOTAL PROTEIN,SERUM 6.8 gm/dL (6.0-8.3); TRICYCLICS (TCA) QUAL. URINE POSITIVE (NEGATIVE)
[2018-03-28 18:30] LABS: CHOLESTEROL 238 mg/dL (<200); HDL -HIGH DENSITY LIPOPROTEIN 44 mg/dL (23-92); TRIGLYCERIDES 110 mg/dL (<150)
[2018-03-28] MEDS ORDERED: Sodium Chloride 0.9% 1,000 ML IV ONE (18:39)
[2018-03-28 18:48] LABS: DDIMER QUANT 125 ng/mL (100-400)
[2018-03-28 22:07] LABS: BUN - UREA NITROGEN 13 mg/dL (7-25); CALCIUM SERUM 9.3 mg/dL (8.6-10.3); CARBON DIOXIDE 17.7 mEq/L (21.0-31.0); CHLORIDE 108 mEq/L (98-107); CREATININE - SERUM 0.9 mg/dL (0.6-1.2); GFR AFRICAN-AMERICAN > 60.0 ml/min (>90); GFR NON AFRICAN-AMERICAN > 60.0 ml/min; GLUCOSE 94 mg/dL (70-105); POTASSIUM SERUM 3.7 mEq/L (3.5-5.1); SODIUM SERUM 135 mEq/L (136-145)
--- NOTE | 2018-03-29 08:12 | Diagnostic Imaging Report ---
Portable chest x-ray Time: Shortness of breath History: 1837 hours Allowing for portable technique the heart size is normal. No focal pulmonary parenchymal processes. No hilar or mediastinal abnormalities. IMPRESSION: No acute disease.
== END 2018-03-28 23:20 | disposition home or self-care (01) ==
LOC: ER 17:03
DX: R07.89 Other chest pain (principal); R00.0 Tachycardia, unspecified; R20.0 Anesthesia of skin; I10 Essential (primary) hypertension
CPT/HCPCS: 99285; 96374; 93005; 71045; 84484 ×2; 83880; 36415; 85379 ×2; 80307; 84443; 85025; 84703; 83735; 80053; 80061; C9113; 80048-TC; 81001-TC; J7030

== ENCOUNTER 2018-12-30 00:14 | Emergency (ER) | payer MEDICARE, MEDICAID ==
[2018-12-30] MEDS ORDERED: Sodium Chloride 0.9% 1,000 ML IV ONE (00:41)
--- NOTE | 2018-12-30 00:48 | ED Physician Chart ---
ED Chief Complaint/HPI - Patient Information Date Seen:: 12/30/18 Time Seen:: 00:43 Chief Complaint:: muscle cramps after seizure History of Present Illness:: 43 yr old female with hx of seizures with c/o of muscle aches cramps Allergies:: Allergies Allergy/AdvReac Type Severity Reaction Status Date / Time No Known Allergies Allergy Verified 11/29/17 09:27 ED Review of Systems - Review of Systems General/Constitutional: No fever, No chills, No weight loss, No weakness, No diaphoresis, No edema, No loss of appetite Skin: No skin lesions, No rash, No bruising Head: No headache, No light-headedness Eyes: No loss of vision, No pain, No diplopia ENT: No earache, No nasal drainage, No sore throat, No tinnitus Neck: No neck pain, No swelling, No thyromegaly, No stiffness, No mass noted Cardio Vascular: No chest pain, No palpitations, No PND, No orthopnea, No edema Pulmonary: No SOB, No cough, No sputum, No wheezing GI: No nausea, No vomiting, No diarrhea, No pain, No melena, No hematochezia, No constipation, No hematemesis G/U: No dysuria, No frequency, No hematuria Musculoskeletal: No bone or joint pain, No back pain, No muscle pain Endocrine: No polyuria, No polydipsia Psychiatric: No prior psych history, No depression, No anxiety, No suicidal ideation Hematopoietic: No bruising, No lymphadenopathy Allergic/Immuno: No urticaria, No angioedema Neurological: No syncope, No focal symptoms, No weakness, No paresthesia, No headache, No seizure, No dizziness, No confusion, No vertigo ED Past Medical History - Past Medical History Past Medical History: Seizures Family Medical History - Family Member Mother History Unknown: Yes Ethnicity: Non- Living Status: Hx Family Cancer: No Hx Family Coronary Artery Disease: Yes Hx Family Congestive Heart Failure: No Hx Family Hypertension: Yes Hx Family Stroke: No Hx Family Diabetes: Yes Hx Family Seizures: No Hx Family Dementia: No Hx Family AIDS: No Hx Family HIV: No Hx Family COPD: No Hx Family Hepatitis: No Hx Family Psychiatric Problems: No Hx Family Tuberculosis: No Father History Unknown: Yes Ethnicity: Non- Living Status: Still Living Hx Family Cancer: No Hx Family Coronary Artery Disease: Yes Hx Family Congestive Heart Failure: No Hx Family Hypertension: Yes Hx Family Stroke: No Hx Family Diabetes: Yes Hx Family Seizures: No Hx Family COPD: No Hx Family Hepatitis: No Hx Family Psychiatric Problems: No Hx Family Tuberculosis: No ED Physical Exam - Physical Examination General/Constitutional: Awake, Well-developed, well-nourished, Alert, No distress, GCS 15, Non-toxic appearing, Ambulatory Head: Atraumatic Eyes: Lids, conjuctiva normal, PERRL, EOMI Skin: Nl inspection, No rash, No skin lesions, No ecchymosis, Well hydrated, No lymphadenopathy ENMT: External ears, nose nl, Nasal exam nl, Lips, teeth, gums nl Neck: Nontender, Full ROM w/o pain, No JVD, No nuchal rigidity, No bruit, No mass, No stridor Respiratory: Nl effort/Exclusion, Clear to Auscultation, No Wheeze/Rhonchi/Rales Cardio Vascular: RRR, No murmur, gallop, rubs, NL S1 S2 GI: No tenderness/rebounding/guarding, No organomegaly, No hernia, Normal BS's, Nondistended, No mass/bruits, No McBurney tenderness : No CVA tenderness Extremities: No tenderness or effusion, Full ROM, normal strength in all extremities, No edema, Normal digits & nails Neuro/Psych: Alert/oriented, DTR's symmetric, Normal sensory exam, Normal motor strength, Judgement/insight normal, Mood normal, Normal gait, No focal deficits Misc: Normal back, No paraspinal tenderness ED Assessment - Assessment General Assessment: muscle cramps hx of seizures ED Septic Shock - . Is Septic Shock (SBP<90, OR Lactate>4 mmol\L) present?: No ED Reassessment (Disposition) - Reassessment Reassessment:: muscle cramps - Aftercare/Follow up Instructions Aftercare/Follow-Up Instructions:: Counseled pt regarding lab results/diagnosis & need follow up - Patient Disposition Discharge/Transfer:: Home Condition at Disposition:: Stable
[2018-12-30] MEDS ORDERED: Morphine Sulfate 2 mg/mL 1mL Syr IVP STA (02:35)
[2018-12-30 02:39] LABS: % BASOPHILS 0.6 % (0.0-2.0); % LYMPHOCYTES 33.9 % (20.0-50.0); % MONOCYTES 4.9 % (2.0-10.0); % NEUTROPHILS 58.6 % (40.0-80.0); BASOPHILE ABSOLUTE 0.1 Th/cumm (0-0.2); EOSINOPHILE ABSOLUTE 0.2 Th/cmm (0.1-0.4); HEMATOCRIT 33.2 % (41.0-60); HEMOGLOBIN 10.8 gm/dL (12-16); MEAN CELL VOLUME 87.7 fl (81-100); MEAN CORPUSCULAR HEMOGLOBIN 28.4 pg (27.0-31.0); MEAN CORPUSCULAR HGB CONC 32.4 pg (28.0-36.0); MEAN PLATELET VOLUME 7.9 fl; MONOCYTE ABSOLUTE 0.4 Th/cmm (0.3-1.0); NEUTROPHILE ABSOLUTE 5.2 Th/cmm (1.8-8.0); PLATELET COUNT 287 Th/cmm (150-400); RED BLOOD COUNT 3.79 Mil/cmm (3.80-5.10); WHITE BLOOD COUNT 8.9 Th/cmm (4.8-10.8)
[2018-12-30] MEDS ORDERED: Morphine Sulfate 2 mg/mL 1mL Syr ONE (02:43)
[2018-12-30 02:53] LABS: ALB/GLOB RATIO 1.7 (1.0-1.8); ALBUMIN 3.8 gm/dL (3.7-5.3); ALKALINE PHOSPHATASE 36 U/L (34-104); BILIRUBIN,TOTAL 0.2 mg/dL (0.3-1.0); BUN - UREA NITROGEN 23 mg/dL (7-25); CALCIUM SERUM 8.8 mg/dL (8.6-10.3); CARBON DIOXIDE 21.7 mEq/L (21.0-31.0); CHLORIDE 106 mEq/L (98-107); GFR AFRICAN-AMERICAN > 60.0 ml/min (>90); GFR NON AFRICAN-AMERICAN > 60.0 ml/min; GLUCOSE 116 mg/dL (70-105); PHENYTOIN < 2.5 ug/ml (10.0-20.0); POTASSIUM SERUM 3.7 mEq/L (3.5-5.1); SGOT 16 U/L (13-39); SGPT/ALT 14 U/L (7-52); SODIUM SERUM 135 mEq/L (136-145); TOTAL PROTEIN,SERUM 6.1 gm/dL (6.0-8.3)
== END 2018-12-30 03:40 | disposition home or self-care (01) ==
LOC: ER 00:14
DX: M79.10 Myalgia, unspecified site (principal); R56.9 Unspecified convulsions
CPT/HCPCS: 36415-UA; 80053-TC; 80185-TC; 85025-TC; 96374; 96375; J1885; J2270; J2405; J7030; Z7502

== ENCOUNTER 2019-01-30 17:10 | Inpatient (IN) | payer MEDICARE, MEDICAID ==
--- NOTE | 2019-01-30 17:59 | ED Physician Chart ---
ED Chief Complaint/HPI - Patient Information Date Seen:: 01/30/19 Time Seen:: 17:50 Chief Complaint:: fatigue and weakness History of Present Illness:: Patient's had fatigue, weakness, anorexia and dry mouth for 2 months. He states she's been laying in bed for the last [address] Pisano has recently diagnosed Ebstein Diaz virus infection. Allergies:: Allergies Allergy/AdvReac Type Severity Reaction Status Date / Time No Known Allergies Allergy Verified 11/29/17 09:27 Vitals:: Vital Signs - 8 hr 01/30/19 17:28 Temp 97.3 F HR 109 RR 18 BP 109/83 O2 Sat % 100 Historian:: Patient Review:: Nurse's Note Reviewed ED Review of Systems - Review of Systems General/Constitutional: Weakness, Loss of appetite Skin: No skin lesions Head: No headache Eyes: No loss of vision ENT: Other (dry mouth) Neck: No neck pain Cardio Vascular: No chest pain, No palpitations Pulmonary: No SOB GI: No nausea, No vomiting, No diarrhea Musculoskeletal: No bone or joint pain Endocrine: No polyuria Psychiatric: No prior psych history Hematopoietic: No bruising Allergic/Immuno: No urticaria Neurological: No syncope, No focal symptoms ED Past Medical History - Past Medical History Past Medical History: HTN, Seizures, Other (sleep apnea) Family History: Heart disease Social History: Non Smoker, No Alcohol Surgical History: Psychiatricy History: None Medication: Reviewed Family Medical History - Family Member Mother History Unknown: Yes Ethnicity: Non- Living Status: Hx Family Cancer: No Hx Family Coronary Artery Disease: Yes Hx Family Congestive Heart Failure: No Hx Family Hypertension: Yes Hx Family Stroke: No Hx Family Diabetes: Yes Hx Family Seizures: No Hx Family Dementia: No Hx Family AIDS: No Hx Family HIV: No Hx Family COPD: No Hx Family Hepatitis: No Hx Family Psychiatric Problems: No Hx Family Tuberculosis: No Father History Unknown: Yes Ethnicity: Non- Living Status: Still Living Hx Family Cancer: No Hx Family Coronary Artery Disease: Yes Hx Family Congestive Heart Failure: No Hx Family Hypertension: Yes Hx Family Stroke: No Hx Family Diabetes: Yes Hx Family Seizures: No Hx Family COPD: No Hx Family Hepatitis: No Hx Family Psychiatric Problems: No Hx Family Tuberculosis: No ED Physical Exam - Physical Examination General/Constitutional: Well-developed, well-nourished, Alert, No distress Other Gen/Cons comments:: Patient tearful Head: Atraumatic Eyes: Lids, conjuctiva normal, PERRL Skin: Nl inspection, No rash, No skin lesions, No ecchymosis ENMT: External ears, nose nl, TM canals nl, Nasal exam nl, Lips, teeth, gums nl Neck: No nuchal rigidity Respiratory: Nl effort/Exclusion, Clear to Auscultation Cardio Vascular: RRR, No murmur, gallop, rubs, NL S1 S2 GI: No tenderness/rebounding/guarding, No organomegaly, No hernia, Normal BS's, Nondistended, No mass/bruits Extremities: Normal digits & nails Neuro/Psych: No focal deficits ED Labs/Radiology/EKG Results - Lab Results Results: Laboratory Results WBC 9.2 Th/cmm (4.8-10.8) 01/30/19 18:10 RBC 4.33 Mil/cmm (3.80-5.10) 01/30/19 18:10 Hgb 12.6 gm/dL (12-16) 01/30/19 18:10 Hct 38.3 % (41.0-60) L 01/30/19 18:10 MCV 88.5 fl (81-100) 01/30/19 18:10 MCH 29.0 pg (27.0-31.0) 01/30/19 18:10 MCHC Differential 32.8 pg (28.0-36.0) 01/30/19 18:10 RDW 15.0 % (11.5-20.0) 01/30/19 18:10 Plt Count 300 Th/cmm (150-400) 01/30/19 18:10 MPV 7.6 fl 01/30/19 18:10 Neutrophils % 68.2 % (40.0-80.0) 01/30/19 18:10 Lymphocytes % 25.0 % (20.0-50.0) 01/30/19 18:10 Monocytes % 5.1 % (2.0-10.0) 01/30/19 18:10 Eosinophils % 1.7 % (0.0-5.0) 01/30/19 18:10 Basophils % 0.0 % (0.0-2.0) 01/30/19 18:10 Laboratory Results WBC 9.2 Th/cmm (4.8-10.8) 01/30/19 18:10 RBC 4.33 Mil/cmm (3.80-5.10) 01/30/19 18:10 Hgb 12.6 gm/dL (12-16) 01/30/19 18:10 Hct 38.3 % (41.0-60) L 01/30/19 18:10 MCV 88.5 fl (81-100) 01/30/19 18:10 MCH 29.0 pg (27.0-31.0) 01/30/19 18:10 MCHC Differential 32.8 pg (28.0-36.0) 01/30/19 18:10 RDW 15.0 % (11.5-20.0) 01/30/19 18:10 Plt Count 300 Th/cmm (150-400) 01/30/19 18:10 MPV 7.6 fl 01/30/19 18:10 Neutrophils % 68.2 % (40.0-80.0) 01/30/19 18:10 Lymphocytes % 25.0 % (20.0-50.0) 01/30/19 18:10 Monocytes % 5.1 % (2.0-10.0) 01/30/19 18:10 Eosinophils % 1.7 % (0.0-5.0) 01/30/19 18:10 Basophils % 0.0 % (0.0-2.0) 01/30/19 18:10 ESR 32 mm/hr (0-30) H 01/30/19 18:10 Sodium 135 mEq/L (136-145) L 01/30/19 18:10 Potassium 3.3 mEq/L (3.5-5.1) L 01/30/19 18:10 Chloride 103 mEq/L (98-107) 01/30/19 18:10 Carbon Dioxide 21.7 mEq/L (21.0-31.0) 01/30/19 18:10 Anion Gap 13.6 (7.0-16.0) 01/30/19 18:10 BUN 15 mg/dL (7-25) 01/30/19 18:10 Creatinine 1.1 mg/dL (0.6-1.2) 01/30/19 18:10 Est GFR ( Amer) > 60.0 ml/min (>90) 01/30/19 18:10 Est GFR (Non-Af Amer) 57.9 ml/min 01/30/19 18:10 BUN/Creatinine Ratio 13.6 01/30/19 18:10 Glucose 125 mg/dL (70-105) H 01/30/19 18:10 Calcium 9.3 mg/dL (8.6-10.3) 01/30/19 18:10 Magnesium 2.2 mg/dL (1.9-2.7) 01/30/19 18:10 Total Bilirubin 0.3 mg/dL (0.3-1.0) 01/30/19 18:10 AST 12 U/L (13-39) L 01/30/19 18:10 ALT 13 U/L (7-52) 01/30/19 18:10 Alkaline Phosphatase 45 U/L (34-104) 01/30/19 18:10 Total Protein 7.2 gm/dL (6.0-8.3) 01/30/19 18:10 Albumin 4.3 gm/dL (3.7-5.3) 01/30/19 18:10 Globulin 2.9 gm/dL 01/30/19 18:10 Albumin/Globulin Ratio 1.5 (1.0-1.8) 01/30/19 18:10 - Radiology Results Results: Chest x-ray showed elevation of left hemidiaphragm was otherwise normal - EKG Interpretations Rate & Rhythm: normal sinus rhythm with a rate of 94 [place]: left axis deviation ED Assessment - Assessment General Assessment: Spoke to Dr. Pisano twice and patient be admitted ED Septic Shock - . Is Septic Shock (SBP<90, OR Lactate>4 mmol\L) present?: No - <6hrs of presentation: Vital Signs: Vital Signs - 8 hr 01/30/19 17:28 Temp 97.3 F HR 109 RR 18 BP 109/83 O2 Sat % 100 ED Reassessment (Disposition) - Reassessment Reassessment Condition:: Unchanged - Diagnosis Diagnosis:: Hypokalemia; depression - Patient Disposition Admitted to:: Med/Surg (salma) Spoke to:: Matias Pisano Admitting Medical Physician:: Matias Pisano Condition at Disposition:: Stable, Unchanged
[2019-01-30 18:14] LABS: % EOSINOPHILS 1.7 % (0.0-5.0); % MONOCYTES 5.1 % (2.0-10.0); % NEUTROPHILS 68.2 % (40.0-80.0); EOSINOPHILE ABSOLUTE 0.2 Th/cmm (0.1-0.4); HEMATOCRIT 38.3 % (41.0-60); HEMOGLOBIN 12.6 gm/dL (12-16); LYMPHOCYTE ABSOLUTE 2.3 Th/cmm (1.5-3.0); MEAN CELL VOLUME 88.5 fl (81-100); MEAN CORPUSCULAR HGB CONC 32.8 pg (28.0-36.0); MEAN PLATELET VOLUME 7.6 fl; MONOCYTE ABSOLUTE 0.5 Th/cmm (0.3-1.0); NEUTROPHILE ABSOLUTE 6.2 Th/cmm (1.8-8.0); PLATELET COUNT 300 Th/cmm (150-400); RED BLOOD COUNT 4.33 Mil/cmm (3.80-5.10); WHITE BLOOD COUNT 9.2 Th/cmm (4.8-10.8)
[2019-01-30 18:47] LABS: ALB/GLOB RATIO 1.5 (1.0-1.8); ALBUMIN 4.3 gm/dL (3.7-5.3); ALKALINE PHOSPHATASE 45 U/L (34-104); ANION GAP 13.6 (7.0-16.0); BILIRUBIN,TOTAL 0.3 mg/dL (0.3-1.0); BUN - UREA NITROGEN 15 mg/dL (7-25); CALCIUM SERUM 9.3 mg/dL (8.6-10.3); CARBON DIOXIDE 21.7 mEq/L (21.0-31.0); CHLORIDE 103 mEq/L (98-107); CREATININE - SERUM 1.1 mg/dL (0.6-1.2); GFR AFRICAN-AMERICAN > 60.0 ml/min (>90); GFR NON AFRICAN-AMERICAN 57.9 ml/min; GLUCOSE 125 mg/dL (70-105); POTASSIUM SERUM 3.3 mEq/L (3.5-5.1); SGOT 12 U/L (13-39); SGPT/ALT 13 U/L (7-52); SODIUM SERUM 135 mEq/L (136-145); TOTAL PROTEIN,SERUM 7.2 gm/dL (6.0-8.3)
[2019-01-30] MEDS ORDERED: Potassium Chloride 20 mEq ER Tab PO ONE ×2 (19:01→19:09)
[2019-01-30] MEDS ORDERED: Sodium Chloride 0.9% 1,000 ML IV ONE (19:21)
[2019-01-30 19:23] LABS: ESR SEDIMENTATION SED RATE 32 mm/hr (0-30)
[2019-01-30 21:54] LABS: URINE SOURCE RANDOM
[2019-01-30 21:57] LABS: URINE BILIRUBIN NEGATIVE (NEGATIVE); URINE BLOOD LARGE (NEGATIVE); URINE GLUCOSE (UA) NEGATIVE (NEGATIVE); URINE KETONE NEGATIVE (NEGATIVE); URINE LEUKOCYTE ESTERASE NEGATIVE (NEGATIVE); URINE MICROSCOPIC INDICATED? YES; URINE NITRATE NEGATIVE (NEGATIVE); URINE PROTEIN NEGATIVE (NEGATIVE); URINE UROBILINOGEN 0.2 E.U./dL (0.2 - 1.0)
[2019-01-30 22:05] LABS: URINE CLARITY CLEAR (CLEAR); URINE COLOR YELLOW
[2019-01-30 22:44] LABS: URINE BACTERIA FEW /hpf (NONE SEEN); URINE EPITHELIAL CELLS FEW /lpf (FEW); URINE RBC 50-100 /hpf (0-5)
[2019-01-31] MEDS ORDERED: Hydrocodone/APAP 10 mg/325 mg Tab PO PRN ×2 (00:01→11:50)
[2019-01-31] MEDS ORDERED: Sodium Chloride 0.9% 1,000 ML IV SCH (01:00)
[2019-01-31 01:07] VITALS: BP 129/100
[2019-01-31 06:41] LABS: % BASOPHILS 0.3 % (0.0-2.0); % EOSINOPHILS 3.2 % (0.0-5.0); % LYMPHOCYTES 35.3 % (20.0-50.0); % MONOCYTES 8.2 % (2.0-10.0); EOSINOPHILE ABSOLUTE 0.2 Th/cmm (0.1-0.4); HEMATOCRIT 33.6 % (41.0-60); HEMOGLOBIN 11.1 gm/dL (12-16); LYMPHOCYTE ABSOLUTE 2.4 Th/cmm (1.5-3.0); MEAN CELL VOLUME 88.6 fl (81-100); MEAN CORPUSCULAR HEMOGLOBIN 29.3 pg (27.0-31.0); MEAN CORPUSCULAR HGB CONC 33.1 pg (28.0-36.0); MEAN PLATELET VOLUME 7.9 fl; MONOCYTE ABSOLUTE 0.5 Th/cmm (0.3-1.0); NEUTROPHILE ABSOLUTE 3.6 Th/cmm (1.8-8.0); PLATELET COUNT 277 Th/cmm (150-400); RED CELL DISTRIBUTION WIDTH 15.2 % (11.5-20.0); WHITE BLOOD COUNT 6.7 Th/cmm (4.8-10.8)
[2019-01-31 06:52] LABS: ANION GAP 12.3 (7.0-16.0); BUN - UREA NITROGEN 18 mg/dL (7-25); CALCIUM SERUM 8.5 mg/dL (8.6-10.3); CHLORIDE 108 mEq/L (98-107); CHOLESTEROL 187 mg/dL (<200); GFR AFRICAN-AMERICAN > 60.0 ml/min (>90); GFR NON AFRICAN-AMERICAN > 60.0 ml/min; GLUCOSE 104 mg/dL (70-105); HDL -HIGH DENSITY LIPOPROTEIN 34 mg/dL (23-92); POTASSIUM SERUM 3.3 mEq/L (3.5-5.1); SODIUM SERUM 137 mEq/L (136-145); TRIGLYCERIDES 111 mg/dL (<150)
--- NOTE | 2019-01-31 08:15 | Diagnostic Imaging Report ---
Portable chest x-ray HISTORY: Shortness of breath Allowing for a poor inspiration, no acute focal pulmonary processes. Heart size appears normal. Scoliosis of the thoracic spine convexity to the right. IMPRESSION: 1. No acute abnormalities
[2019-01-31] MEDS ORDERED: NIFEdipine 30 mg ER Tab PO SCH (09:00)
[2019-01-31] MEDS ORDERED: Potassium Chloride 20 mEq ER Tab PO ONE ×3 (09:10→13:41)
[2019-01-31] MEDS ORDERED: IOHEXOL 350mgI/mL 150mL IV ONE (09:15)
[2019-01-31] MEDS ORDERED: Lactulose 10 Gm/15 mL 30mL UDC PO ONE (09:30)
--- NOTE | 2019-01-31 10:26 | Diagnostic Imaging Report ---
Bilateral lower extremity Doppler venous ultrasound exam HISTORY: Pain/swelling Sonographic sector images were obtained through the deep venous systems of both legs. Associated Doppler data was obtained. The exam demonstrates patency of the common femoral, superficial femoral, popliteal, and posterior tibial veins bilaterally. Specifically, no thrombus is seen. There are normal compressibility and augmentation responses. IMPRESSION: Negative exam for deep vein thrombophlebitis.
[2019-01-31] MEDS ORDERED: HYDROmorphone 2 mg/mL 1mL Vial IVP PRN (13:20)
[2019-01-31] MEDS ORDERED: Non-Formulary Item 1 EA (Zolpidem Tartrate [Ambien] 10 MG) PO PRN (13:26)
[2019-01-31] MEDS ORDERED: TOPIRAMATE 100 MG PO SCH (13:30)
[2019-01-31] MEDS ORDERED: NIFEDIPINE 30 MG PO SCH (13:30)
--- NOTE | 2019-01-31 17:40 | History & Physical ---
ADMIT DATE: CHIEF COMPLAINT: Weakness and hypokalemia. RECENT MEDICAL HISTORY: On 01/30/2019, the patient presented to [facility] mid late afternoon with a complaint of weakness and lethargy. On laboratory testing, she was found to have hypokalemia 3.3, low normal. On chest x-ray, she was shown to have elevated left hemidiaphragm and she has a history of seizure disorder. She also has a history of cardiomegaly and hypertension with left axis deviation. Her EKG ordered by Dr. Brooks, Emergency Department at [facility] demonstrated left axis deviation, otherwise it was a normal EKG. Dr. Brooks concerned about the extreme weakness of the patient, fatigue, and the low potassium. Dr. Brooks gave an initial bolus of potassium and the patient still remained below normal. He called Dr. Pisano, the PCP, for this patient and Dr. Pisano as a concern requested that Dr. Brooks order chest x-ray, which revealed the left hemidiaphragm elevation. They both agreed the patient needed to be admitted for her extreme lethargy, hypokalemia, and her preexisting additional diagnosis of obesity, seizure disorder, headaches. DIAGNOSTIC DATA: For this patient on presentation, heart rate 88 per minute, blood pressure 115/72. Again, chest x-ray: Elevated left hemidiaphragm. Also, potassium 3.3 below normal, some mild blood in the urine, and later it was found to have an elevated D-dimer of [address] Pisano. REVIEW OF SYSTEMS: HEENT: Not significant for today's admission. CHEST: Significant for today's admission and that the patient has an elevated D-dimer. LUNGS: Significant for this admission and that the patient has an elevated D-dimer. CARDIAC: Significant for this admission and that the patient has a left axis deviation and hypertension, well controlled. ABDOMEN: Not significant for today's admission. EXTREMITIES: Significant for today's admission in that the patient has an elevated D-dimer, which could imply a DVT in the lower extremities. NEUROLOGICAL: Not significant for today's admission and that the patient has been stabilized for seizure disorder most recently. PSYCHIATRY: Not significant for today's admission. MEDICAL EXAMINATION: HEENT: Normocephalus. No evidence of trauma. Extraocular motion intact bilaterally. Pupils equally reactive to light and accommodation bilaterally. Oropharynx open, no apparent infection. Tympanic membranes intact bilaterally. CHEST: Normal inspiratory and expiratory movement. LUNGS: Relatively clear to auscultation. CARDIAC: Normal sinus rhythm. ABDOMEN: Obese belly, positive bowel sounds in all 4 quadrants. Nontender to palpation. EXTREMITIES: Unable to fully test secondary to supine, bedridden position, but apparently 5/5. Full range of motion. NEUROLOGICAL: Apparently intact cerebellum. Probable full motor strength 5/5. Again, unable to fully test secondary to supine bed position. PSYCHIATRIC: History of depressive disorder. We are going to confirm that this patient does not require psychiatric consult. Apparent mood on examination are relatively normal. IMPRESSION: 1. Gross weakness, gross fatigue, hypokalemia. 2. Elevated D-dimer, rule out lower extremity DVT, rule out pulmonary embolus. MEDICATIONS: Continue all current medications, which include aspirin 81 mg p.o. q. day; ferrous sulfate 325 mg p.o. q. day; [place] 10/325 mg p.o. q.i.d., which we were going to switch to Dilaudid while she is hospitalized 2 mg IV slow push q. 6 hours; lisinopril 40 mg p.o. q. day; Xanax 2 mg p.o. q.i.d. p.r.n. anxiety, which we are going to change to Ativan 2 mg IV slow push q. 6 hours p.r.n. anxiety; Procardia XL 30 mg p.o. q. day. She is on sodium chloride 0.9, normal saline 75 mL per hour, Imitrex 50 mg p.o. q. day p.r.n. headache, Ambien 10 mg p.o. at bedtime p.r.n. insomnia. She is taking an anti-seizure medication, Zonisamide, the brand name is Zonegran 100 mg tablet 3 p.o. at bedtime. She takes that every day. She is also taking anti-seizure medicine called Trokendi XR 100 mg p.o. q.a.m. PLAN: Admit to med/surg with telemetry. We are going to order a CT scan angiogram for pulmonary embolus. We are going to evaluate that. If the patient is negative for CT scan and negative for a DVT in the lower extremities, we are going to consider discharge. We are going to recheck potassium after she is given additional 40 mEq p.o., 03:29 in the afternoon. JOB# [id number] [facility]ITAL[facility]i
--- NOTE | 2019-02-01 00:52 | Consultation ---
DATE OF CONSULTATION: 01/31/2019 NEUROLOGY CONSULTATION HISTORY OF PRESENT ILLNESS: The patient is a 43-year-old admitted with complaints of weakness. This has been going on for a few months. The patient notes that mainly in bed. She can get up and walk. She is moving all extremities. She tells me she has history of seizures. She follows with a neurologist actively and in fact saw the neurologist a few days ago. I do not know whether any workup was done for this weakness or not. PAST MEDICAL HISTORY: The patient has hypertension, seizures, sleep apnea. The patient had an extensive workup done, Willian-Diaz virus titers were positive from the chart. MEDICATIONS: 1. Xanax 2 mg at bedtime. 2. Aspirin. 3. Tegretol 200. 4. Gabapentin 300. 5. Lisinopril. 6. Oxcarbazepine 300. 7. Sumatriptan. 8. Ambien. 9. Was on [place] also. 10. Toradol was given. 11. Nifedipine. REVIEW OF SYSTEMS: Twelve point negative except for above. PHYSICAL EXAMINATION: VITAL SIGNS: Temperature 96.7, blood pressure 129/84, and pulse is around 87. NECK: Supple, no bruits. HEART: Sounds S1, S2. LUNGS: Clear. NEUROLOGIC: The patient is awake and alert. She answers questions. Speech is normal. Pupils react to light. Full eye movement, no nystagmus. Motor: She is able to lift both arms up. There are about 4+/5. She has a tree pruner, but weak. Effort is poor. Lower extremities: She is able to lift both legs up. Tone is okay. She is able to extend and flex the toes and the feet about 4/4+. Reflexes of upper extremity about 1/-1. Knees are about -1. Ankles are somewhat difficult to get. LABORATORY DATA: WBC 6.7, hemoglobin 11.1. ESR is 32, magnesium 2.2, calcium 8.5. LFTs okay. Urine positive WBCs 6-10. ASSESSMENT: Weakness, known, appears to be diffuse. She has had extensive workup done. I am going to check CPK, aldolase. I do not see any definite focal deficit at this time. However, the patient should follow up with her neurologist and probably may need open machine just to make sure no underlying aspect of neuropathy or myopathy. The patient's seizure medication, continue present. We will check the levels. JOB# [id number]
--- NOTE | 2019-02-01 08:05 | Diagnostic Imaging Report ---
CT angiogram of the chest with intravenous contrast (CTA) HISTORY: Shortness of breath Total DLP equals 451 CTDI equals 25.0 Following administration of intravenous contrast, axial sections were obtained from a level above the clavicles down to level below the diaphragm. The heart size is normal. There is normal opacification the main, right, and left pulmonary arteries. No intraluminal filling defects are seen. Specifically, no evidence of pulmonary embolism. Slight elevation of the left hemidiaphragm. No acute focal pulmonary processes. No pleural fluid. IMPRESSION: 1. No acute abnormalities. No evidence of pulmonary embolism.
[2019-02-01] MEDS ORDERED: Non-Formulary Item 1 EA (Hydrochlorothiazide [Hydrochlorothiazide] 12.5 MG) PO SCH (09:00)
[2019-02-01] MEDS ORDERED: Ferrous Sulfate 325 MG TAB PO SCH (09:00)
[2019-02-01] MEDS ORDERED: Aspirin 81mg Chewable Tab PO SCH (09:00)
--- NOTE | 2019-02-08 08:15 | Discharge Summary ---
DATE OF DISCHARGE: 01/31/2019 DISCHARGE DIAGNOSES: 1. Hypokalemia. 2. Weakness. RECENT MEDICAL HISTORY: This patient presented to [facility] on 01/30/2019, late afternoon, with a complaint of severe weakness, lethargy, and difficulty concentrating. On lab testing, she was found to be hypokalemic, below normal at 3.3 value. On chest x-ray, she had an elevated left hemidiaphragm and she has a concurrent history of seizure disorder, taking several different medications for that. She also has a concurrent history of cardiomegaly, hypertension and left axis deviation. Dr. Brooks, the Emergency Department medical doctor carbon paper coating machine setter at the time, took an EKG and found the patient to have a left axis deviation, but otherwise normal EKG. Dr. Brooks gave the PCP, Dr. Pisano, myself, a call because of the extreme weakness, fatigue and low potassium level of the patient. Dr. Brooks gave an initial bolus of fluids via IV and potassium, but the patient still remained below normal. Dr. Brooks, concerned for the patient's wellbeing, called Dr. Pisano and after back and forth conversation and the already mentioned chest x-ray, we agreed, Dr. Brooks and myself, that the patient should be admitted for lethargy, hypokalemia with her preexisting diagnoses of obesity, seizure disorder, headaches and amongst other diagnoses. DIAGNOSTIC DATA: The patient's heart rate on presentation to the ER was 88 per minute, blood pressure 115/72. Chest x-ray: Elevated left hemidiaphragm. Potassium below normal at 3.3. Blood in her urine and an elevated D-dimer of 525. PERSONAL INFORMATION: The patient is with and children. ALLERGIES: I believe that the patient has no known allergies. HOSPITAL COURSE AND TREATMENT: Day #1, 01/30/2019: The patient presented and was given all of her current medications, which include the following: Aspirin 81 mg p.o. daily, ferrous sulfate 325 mg p.o. daily. She was initially started on [place] 10/325 p.o. q.i.d. that would be every 6 hours, which was later switched to Dilaudid 2 mg IV slow push q.6 hours. Lisinopril 40 mg p.o. daily, Xanax 2 mg slow push p.r.n. anxiety, which was actually changed to Ativan. Procardia-XL 30 mg p.o. daily. She was given via IV sodium chloride 0.9% normal saline 75 mL per hour. She also takes Imitrex 50 mg p.o. daily p.r.n. headache, Ambien 10 mg p.o. at bedtime p.r.n. insomnia. She was also taking anti-seizure medications, the brand name is Zonogram, also known generically as zonisamide 100 mg tablet, 3 of those at bedtime; and she is also taking an anti-seizure medication called Trokendi XR 100 mg p.o. q.a.m. Because of the concern of Dr. Brooks and Dr. Pisano, the patient was admitted to medical surgery with telemetry. Dr. Pisano ordered a CAT scan angiogram to rule out pulmonary embolus because of the elevated D-dimer of 525 above normal and also an ultrasound of both lower extremities to rule out for deep vein thrombosis. The patient was given additional milliequivalents of potassium, if I am not mistaken, she was given 20 mEq later in her room on 01/30 and a second time and she was still demonstrating below normal levels of potassium. Day #2, 01/31/2019: The patient has received her 2 ultrasound studies on each lower extremity. The patient was stable. After Dr. Pisano spoke to her at length, the patient was very anxious to leave because of her children at home that were not attended in the way that she wanted them attended and Dr. Pisano explained to her the issue of possible pulmonary embolus and we wanted to make sure that she did not have that, so she agreed to receive the CT scan and angiogram for ruling out pulmonary embolus and she underwent that procedure and Dr. Pisano did read the studies in the radiology suite and saw that on apparent imaging, there was no evidence of pulmonary embolus that was later confirmed by Radiology, and Dr. Pisano had given his verbal consent that if the patient underwent the CT angiogram for pulmonary embolus and the fact that she was negative for the DVTs, that if we were able to obtain a potassium level that was in normal limits that he was willing to have her be discharged, go home and follow up with Dr. Pisano on the following Sunday. We were able to give her an additional 40 mEq by mouth and shortly thereafter, we tested the patient and she did test in the normal range for potassium and the patient did leave, although she refused to sign the discharge paperwork. So, from one perspective, she left against medical advice. On the other hand, she did comply with what Dr. Pisano had requested and from Dr. Pisano' perspective, she was quite stable when she did leave and she had been instructed to follow up with Dr. Pisano on the following Sunday. Also, Dr. Pisano, on the same day, on 01/31/2019, telephoned into her pharmacy and ongoing supply of potassium of 10 mEq p.o. daily for 1 month plus 1 additional refill. The condition of this patient on discharge, although she did leave without signing paperwork, her condition was stable. There were no consults required in this short hospital stay and she is supposed to be following up with Dr. Pisano on the following Sunday. Dr. Marti had already dictated the H and P, which was in the system effectively 02/03/2019 if I am not mistaken and was actually dictated before that. Again, there were no consults and the patient was stable on discharge. Again, she was feeling much better. She had more energy and she was normal in her potassium level on discharge on 01/31/2019. JOB# [id number]
--- NOTE | 2019-02-08 08:55 | Discharge Summary ---
DATE OF DISCHARGE: 01/31/2019 DISCHARGE DIAGNOSES: 1. Weakness, resolved. 2. Hypokalemia, resolved. 3. Seizure disorder, stable. 4. Headache, currently resolved. 5. Hypertension, resolved. RECENT MEDICAL HISTORY: The patient presented on 01/30/[address] [facility] Emergency Department complaining of weakness, lethargy. She was found to be hypokalemic with a level of 3.[address] Brooks, Emergency Department medical doctor. On chest x-ray she had an elevated left hemidiaphragm. On EKG she had left axis deviation. Because of the patient's history of cardiomegaly and hypertension, Dr. Brooks concerned for the patient's fatigue and low potassium called Dr. Pisano. Both agreed because of the cardiac background and seizure disorder background of this patient that this patient should be minimally observed and rehydrated and her potassium brought back up to normal. Also, during the conversation it was suggested that a D-dimer be performed on this patient together with a troponin 1. The patient later, after the conversation Dr. Pisano spoke to the admitting nurse and gave orders for admission on that same day. DIAGNOSTIC DATA: Blood pressure on presentation was 115/72, heart rate 88 per minute. D-dimer was found to be above normal at 525. Also, some mild blood in the patient's urine. Chest x-ray again showing elevated left hemidiaphragm. PERSONAL HISTORY: This patient is with children. ALLERGIES: No known allergy. HOSPITAL COURSE AND TREATMENT EACH DAY: Day #1, 01/30/2019, the patient was found to again have the elevation of the D-dimer. Dr. Pisano prescribed an ultrasound for the lower extremities to rule out deep vein thrombosis. Dr. Pisano prescribed a CT scan angiogram to rule out pulmonary embolus. The patient's medications were to continue as normal, which included a baby aspirin 81 mg p.o. every day, ferrous sulfate 325 mg p.o. every day. The patient was initially prescribed [place] 10/325 p.o. 4 times a day, which was later switched to Dilaudid 2 mg IV slow push q.6 hours p.r.n. pain, lisinopril 40 mg p.o. every day, Xanax initially 2 mg p.o. q.i.d. switched to Ativan 2 mg IV slow push q.6 hours p.r.n. anxiety, Procardia-XL 30 mg p.o. every day. The patient was being administered sodium chloride 0.9 normal saline at the rate of 75 mL per hour, Imitrex 50 mg p.o. every day p.r.n. headache, Ambien 10 mg p.o. at bedtime p.r.n. insomnia, taking two separate anti-seizure medications, relatively new in her treatment protocol, Zonegran is the brand name 100 mg tablet 3 of those at bedtime and the generic is zonisamide, and second anti-seizure medication Trokendi XR 100 mg p.o. q.a.m. The patient was admitted to medical surgery with telemetry and the patient was given several applications of 20 mEq of potassium, still below normal on rechecking. On day #2, 01/31/2019, the patient was very anxious to leave before her workup was finished. Dr. Pisano spoke at length with the patient and the patient's . They both agreed that she should stay until she received the CAT scan angiogram of her chest to rule out pulmonary embolus because of her elevated D-dimer and the risks of there being a pulmonary embolus. The patient did keep her words. She did go for the CT scan angiogram. Dr. Pisano reviewed the films in the Radiology suite. He saw nothing abnormal, which was later confirmed by the radiologist. The patient did agree to take additional by mouth 40 mEq of potassium, which later tested to be within normal range. The patient voiced very strong concerns for getting back to her children and was getting very anxious about that and left the hospital before signing paperwork for the formal discharge, although she did comply with the most important items that stabilized her. Dr. Pisano had also called in for a Neurology consult with Dr. Alvarado and Dr. Alvarado had seen the patient and he was of the impression she needed additional imaging at some point soon and his work content was the following: May need open machine just to make sure no underlying aspect of neuropathy or myopathy, and I think that is a very good deduction on Dr. Alvarado's part, which Dr. Pisano will certainly take into consideration for the PCP care of this patient. So, this patient's finalization was normalized with resolved weakness, with resolved hypokalemia, with no current seizure activity, with no current significant cardiac issues. In summarization, consult with Dr. Alvarado, Neurology, for the altered mental status and the gross lethargy and fatigue of the patient and he did a review of her anti-seizure medication. JOB# [id number]
== END 2019-01-31 15:10 | disposition home or self-care (01) | DRG 641 ==
LOC: ER 17:10 → MSI 19:20
PROVIDERS: ADMIT General Practice; ATTEND General Practice
DX: E87.6 Hypokalemia (principal); E86.0 Dehydration; E66.09 Other obesity due to excess calories; R53.1 Weakness; F32.9 Major depressive disorder, single episode, unspecified; G40.909 Epilepsy, unspecified, not intractable, without status epilepticus; I11.9 Hypertensive heart disease without heart failure
CPT/HCPCS: 36415-UA; 71045-TC; 71275-TC; 80048-TC; 80053-TC; 80061-TC; 81001-TC; 81025-TC; 82140-TC; 83036-90; 83735-TC; 83880-TC; 84132-TC; 84425-90; 84484-TC; 85025-TC; 85379-TC; 85652-TC; 93005; 93970-TC-50; 94760; J1885; J7030; Z7610